=== PATIENT | male | born 1935 | race Caucasian/White ===

== ENCOUNTER 2016-07-23 18:50 | Emergency (ER) | payer OTHER | END 2016-07-23 22:20 | disposition home or self-care (01) | LOC: FER 18:50 | DX: S61.221A Laceration with foreign body of left index finger without damage to nail, initial encounter (principal); Z86.73 Personal history of transient ischemic attack (TIA), and cerebral infarction without residual deficits; Z23 Encounter for immunization; Z79.01 Long term (current) use of anticoagulants; W29.8XXA Contact with other powered hand tools and household machinery, initial encounter | CPT/HCPCS: 73140; 90471; 90715 ==